=== PATIENT | female | born 1985 | race Caucasian/White ===

== ENCOUNTER 2018-09-24 10:23 | Inpatient (IN) | payer OTHER ==
[~2018-09-24] VITALS: Ht 157.5 cm; Wt 65.3 kg
[2018-10-16] MEDS ORDERED: OBSTETRIX DHA1 EACH PO (08:24)
== END 2018-10-18 13:26 | disposition home or self-care (01) | DRG 807 ==
LOC: LDR 10-01 14:30 → OB/GYN 10-16 16:26 → LDR 10-22 14:30
PROVIDERS: ADMIT Obstetrics & Gynecology
PROC: 10E0XZZ Delivery of Products of Conception, External Approach (ICD-10-PCS; principal; 2018-10-16)
PROC: 3E033VJ Introduction of Other Hormone into Peripheral Vein, Percutaneous Approach (ICD-10-PCS; 2018-10-16)
PROC: 4A1HXCZ Monitoring of Products of Conception, Cardiac Rate, External Approach (ICD-10-PCS; 2018-10-16)
DX: O80 Encounter for full-term uncomplicated delivery (principal); Z37.0 Single live birth; Z3A.39 39 weeks gestation of pregnancy

== ENCOUNTER 2018-10-14 08:49 | Outpatient (CLI) | payer OTHER | END 2018-10-14 09:53 | disposition home or self-care (01) | LOC: NST 08:49 | DX: Z34.83 Encounter for supervision of other normal pregnancy, third trimester (principal) ==

== ENCOUNTER 2021-05-22 11:33 | Outpatient (CLI) | payer OTHER ==
[~2021-05-22 11:33] MED LIST: OBSTETRIX DHA1 EACH PO
== END 2021-05-22 12:14 | disposition home or self-care (01) ==
LOC: NST 11:33
PROVIDERS: ATTEND Obstetrics & Gynecology
DX: Z34.83 Encounter for supervision of other normal pregnancy, third trimester (principal)

== ENCOUNTER 2021-06-25 08:45 | Inpatient (IN) | payer OTHER ==
[~2021-06-25] VITALS: Ht 157.5 cm; Wt 68.5 kg
[2021-07-12] MEDS ORDERED: NIFEDIPINE ER30 M1 (08:04)
== END 2021-07-13 11:13 | disposition home or self-care (01) | DRG 807 ==
LOC: SURH 06-27 08:45 → EDBD 07-11 05:42 → LDR 07-11 05:42 → SURG-SUITE 07-11 05:42
PROVIDERS: ADMIT Obstetrics & Gynecology; ATTEND Obstetrics & Gynecology
PROC: 10E0XZZ Delivery of Products of Conception, External Approach (ICD-10-PCS; principal; 2021-07-11)
PROC: 4A1HXCZ Monitoring of Products of Conception, Cardiac Rate, External Approach (ICD-10-PCS; 2021-07-11)
DX: O80 Encounter for full-term uncomplicated delivery (principal); Z37.0 Single live birth; Z3A.39 39 weeks gestation of pregnancy; Z20.822 Contact with and (suspected) exposure to COVID-19